=== PATIENT | female | born 1965 | race Caucasian/White ===

== ENCOUNTER 2019-03-09 23:51 | Emergency (ER) | payer BC ==
[~2019-03-09] VITALS: Ht 160 cm; Wt 68.2 kg
[2019-03-10] VITALS: Ht 160 cm; Wt 68.2 kg
[2019-03-10 01:28] LABS: APPEARANCE TURBID (CLEAR); BACTERIA FEW /hpf (NONE SEEN); BILIRUBIN NEGATIVE (NEGATIVE); COLOR RED (YELLOW); EPITHELIAL CELLS NSEEN /hpf (0-5); GLUCOSE NEGATIVE (NEGATIVE); KETONE NEGATIVE (NEGATIVE); NITRITE NEGATIVE (NEGATIVE); PROTEIN 2+ mg/dL (NEGATIVE); RED CELLS - URINE >50 /hpf (0-5); SPECIFIC GRAVITY 1.015 (1.005-1.020); UROBILINOGEN NORMAL (NORMAL)
[2019-03-10] MEDS ORDERED: CIPRO500 MG PO (01:56)
[2019-03-10 02:21] VITALS: BP 148/90
== END 2019-03-10 02:23 | disposition home or self-care (01) ==
LOC: D.ER 23:51
PROVIDERS: Emergency Medicine
DX: N30.80 Other cystitis without hematuria (principal)